=== PATIENT | male | born 1970 | race Caucasian/White ===

== ENCOUNTER → 2016-07-15 | Outpatient (CLI) | payer OTHER ==
[~2016-07-15] MED LIST: BROMPHENIRAMIN118 M1 PO; IBU800 MG PO; PREDNISONE 20MG20 MG PO; ZITHROMAX Z PA250 MG PO
--- NOTE | 2016-07-15 12:20 | RADIOLOGY REPORT PS360 ---
US RUQ-(ABD LTD)1ORGAN/QUAD/FU HISTORY: RUQ ABDOMINAL PAIN ORDERING PHYSICIAN: Jennifer APPIAH PATIENT AGE: 45 years COMPARISON: None FINDINGS: PANCREAS: Unremarkable. No obvious mass or abnormal fluid collection. No ductal dilatation LIVER: Hepatic steatosis RIGHT KIDNEY: Unremarkable. Normal size and echogenicity. No hydronephrosis GALLBLADDER: No gallstones, gallbladder wall thickening, pericholecystic fluid, or biliary dilatation. IMPRESSION: Fatty liver otherwise negative right upper quadrant ultrasound
== END ==
LOC: RAD 09:47
DX: R10.11 Right upper quadrant pain (principal)

== ENCOUNTER → 2016-08-08 | Outpatient (CLI) | payer OTHER | LOC: RT 11:57 | DX: Z01.810 Encounter for preprocedural cardiovascular examination (principal); Z01.812 Encounter for preprocedural laboratory examination ==

== ENCOUNTER → 2016-08-16 | Outpatient (CLI) | payer OTHER ==
[2016-08-16 12:19] LABS: HEMOGLOBIN 17.3 g/dL (14.1-18.0); LYMPH # 2.3 K/mm3 (0.7-4.5); LYMPH % 44.4 % (10-50)
[2016-08-16 13:22] LABS: BUN 11 mg/dL (7-18); GFR (ESTIMATED) 91 ML/MIN (>60)
== END ==
LOC: LAB 11:39
PROVIDERS: Surgery
DX: Z01.810 Encounter for preprocedural cardiovascular examination (principal); Z01.812 Encounter for preprocedural laboratory examination; Z01.811 Encounter for preprocedural respiratory examination

== ENCOUNTER → 2016-08-16 | Outpatient (CLI) | payer OTHER | LOC: SL 12:05 | DX: R06.81 Apnea, not elsewhere classified (principal) ==